=== PATIENT | male | born 1945 | race Caucasian/White ===

== ENCOUNTER 2018-05-16 06:37 | Emergency (ER) | payer MEDICARE ==
[~2018-05-16] VITALS: Ht 182.9 cm; Wt 98.4 kg
[~2018-05-16 06:37] MED LIST: NO HOME MEDS; ONDA4TAB6 PO; OXYC-145 PO
[2018-05-16 06:57] VITALS: BP 147/73
== END 2018-05-16 07:56 | disposition home or self-care (01) ==
LOC: ER 06:38
DX: K40.90 Unilateral inguinal hernia, without obstruction or gangrene, not specified as recurrent (principal); Z87.442 Personal history of urinary calculi; Z88.6 Allergy status to analgesic agent; Z88.5 Allergy status to narcotic agent
CPT/HCPCS: 99281; 99283

== ENCOUNTER 2018-05-23 05:17 | Day surgery (SDC) | payer MEDICARE ==
[2018-05-22 11:25] LABS: BASOPHILS # (AUTO) 0.1 X10'3 (0-0.2); BASOPHILS % (AUTO) 1.5 % (0-1); EOSINOPHILS # (AUTO) 0.3 X10'3 (0-0.9); EOSINOPHILS % (AUTO) 3.4 % (0-6); LYMPHOCYTES # (AUTO) 1.9 X10'3 (1.1-4.8); LYMPHOCYTES % (AUTO) 24.1 % (21-51); MEAN CORPUSCULAR HEMOGLOBIN 32.2 PG (27.0-31.0); MEAN CORPUSCULAR HGB CONC 33.6 % (33.0-36.5); MEAN CORPUSCULAR VOLUME 95.8 FL (78-98); MEAN PLATELET VOLUME 9.6 FL (7.4-10.4); MONOCYTES # (AUTO) 0.7 X10'3 (0-0.9); MONOCYTES % (AUTO) 8.5 % (2-12); NEUTROPHILS % (AUTO) 62.5 % (42-75); PRE OP HEMATOCRIT 49.8 % (42.0-52.0); PRE OP HEMOGLOBIN 16.7 g/dL (14.0-17.9); PRE OP PLATELET COUNT 217 X10'3 (140-440); RED BLOOD COUNT 5.19 X10'6 (4.70-6.10); RED CELL DISTRIBUTION WIDTH 12.7 % (11.5-14.5)
[2018-05-22 11:40] LABS: ALBUMIN 3.9 G/DL (3.4-5.0); ALBUMIN/GLOBULIN RATIO 1.2 (1.1-1.5); ALKALINE PHOSPHATASE 98 IU/L (46-116); BLOOD UREA NITROGEN 19 MG/DL (7-18); BUN/CREATININE RATIO 19.6 (5.4-32.0); CHLORIDE 105 MMOL/L (99-107); CREATININE 0.97 MG/DL (0.60-1.10); PRE OP ALT 33 U/L (30-65); PRE OP ANION GAP 9 (8-16); PRE OP AST 19 U/L (10-37); PRE OP BILIRUB, TOTAL 0.5 MG/DL (0.0-1.0); PRE OP GLUCOSE 95 MG/DL (70-104); PRE OP POTASSIUM 4.4 MMOL/L (3.4-5.1); PRE OP SODIUM 143 MMOL/L (135-145); TOTAL CARBON DIOXIDE 28.6 MMOL/L (24-32); TOTAL PROTEIN 7.1 G/DL (6.4-8.2); eGFR 76 ML/MIN
[~2018-05-23] VITALS: Ht 185.4 cm; Wt 96.4 kg
[2018-05-23] VITALS (16 sets, daily range): BP systolic 124–176; BP diastolic 61–94
[~2018-05-23 05:17] MED LIST changes: +MULT-1085 PO; -NO HOME MEDS; -ONDA4TAB6 PO; -OXYC-145 PO; +ringers solution, lacted 1,000 ML IV SCH
[2018-05-23] MEDS ORDERED: famotidine 20mg tablet PO ONE (05:30)
[2018-05-23] MEDS ORDERED: LIDOcaine 1% (10mg/ml) 2ml vial ONE (05:50)
[2018-05-23] MEDS ORDERED: ceFAZolin 1000mg inj ONE (06:54)
[2018-05-23] MEDS ORDERED: BUPIVAcaine/PF 2.5mg/ml (0.25%) 10ml vial ONE (06:54)
[2018-05-23] MEDS ORDERED: cefazolin/dext.iso 2gm/100ml 100 ML IV ONE (08:00)
[2018-05-23] MEDS ORDERED: scopolamine 1.5mg patch.TD72 TD ONE (08:03)
[2018-05-23] MEDS ORDERED: propofol inj 20 ML IV ONE (08:17)
[2018-05-23] MEDS ORDERED: midazolam 2 mg/2 ml injection ONE (08:17)
[2018-05-23] MEDS ORDERED: fentaNYL/PF 50MCG/1 ML 2ML syringe ONE (08:17)
[2018-05-23] MEDS ORDERED: dexamethasone sod phosphate 4mg/ml inj. ONE (08:17)
[2018-05-23] MEDS ORDERED: rocuronium 10mg/ml inj IV ONE (08:18)
[2018-05-23] MEDS ORDERED: neostigmine methylsulfate 1 MG/ML 10ml vial ONE (08:53)
[2018-05-23] MEDS ORDERED: ondansetron/PF 4mg/2ml inj ONE (08:53)
[2018-05-23] MEDS ORDERED: sevoflurane 250ml liquid IH ONE (08:53)
[2018-05-23] MEDS ORDERED: glycopyrrolate 0.2mg/ml inj ONE (08:53)
[2018-05-23] MEDS ORDERED: ringers solution, lacted 1,000 ML IV SCH (09:26)
[2018-05-23] MEDS ORDERED: proCHLORperazine 10 MG/2 ml inj IV PRN (09:30)
[2018-05-23] MEDS ORDERED: ondansetron/PF 4mg/2ml inj IV PRN (09:30)
[2018-05-23] MEDS ORDERED: meperidine/PF 25mg/ml syringe IV PRN ×3 (09:30)
[2018-05-23] MEDS ORDERED: morphine 4 MG/ML inj SYRINge IV PRN ×2 (09:30)
[2018-05-23] MEDS ORDERED: ketorolac trometh. 30mg/ml inj. ONE (09:59)
[2018-05-23] MEDS ORDERED: acetaminophen 1,000mg/100ml IV 100 ML IV ONE (10:15)
== END 2018-05-23 12:20 | disposition home or self-care (01) ==
LOC: PAS 05:17
PROVIDERS: ATTEND Surgery
DX: K40.20 Bilateral inguinal hernia, without obstruction or gangrene, not specified as recurrent (principal); Z88.5 Allergy status to narcotic agent; Z88.6 Allergy status to analgesic agent; Z87.442 Personal history of urinary calculi; Z98.890 Other specified postprocedural states; Z79.899 Other long term (current) drug therapy
CPT/HCPCS: 36415; 49650; 80053; 85025; 93005; A4315; A6258; C1781; J0131; J0690; J1100; J1885; J2250; J2405; J2704; J2710; J3010; J3490; J7120